=== PATIENT | female | born 1950 | race Caucasian/White ===

== ENCOUNTER → 2021-01-03 | Outpatient (CLI) | payer MEDICARE, OTHER | LOC: MAMO 13:47 | DX: R92.8 Other abnormal and inconclusive findings on diagnostic imaging of breast (principal) | CPT/HCPCS: 77065; G0279 ==

== ENCOUNTER → 2021-03-16 | Outpatient (CLI) | payer MEDICARE | LOC: RAD 15:22 | DX: M25.561 Pain in right knee (principal); M25.562 Pain in left knee; M79.641 Pain in right hand; Z96.643 Presence of artificial hip joint, bilateral | CPT/HCPCS: 73110; 73130; 73564 ==

== ENCOUNTER → 2021-04-23 | Outpatient (CLI) | payer MEDICARE, OTHER | LOC: EXRD 10:46 | DX: R26.81 Unsteadiness on feet (principal) | CPT/HCPCS: 93880 ==

== ENCOUNTER → 2021-08-20 | Outpatient (CLI) | payer MEDICARE, OTHER | LOC: KOH-I 13:32 | DX: M79.671 Pain in right foot (principal) | CPT/HCPCS: 73650 ==